=== PATIENT | male | born 1975 | race Caucasian/White ===

== ENCOUNTER 2016-04-25 14:46 | Outpatient (CLI) | payer MEDICAID | END 2016-04-25 14:47 | disposition home or self-care (01) | DX: M54.5 Low back pain (principal); Z98.1 Arthrodesis status ==

== ENCOUNTER 2016-04-29 12:52 | Emergency (ER) | payer MEDICAID ==
--- NOTE | 2016-04-29 13:47 | ED Physician Documentation ---
History of Present Illness - Stated complaint Stated Complaint: CHEST PAIN - Chief complaint Chief Complaint: Cardiac - History obtained from History obtained from: Patient - History of Present Illness Timing: How many weeks ago (3) - Additonal information Additional information: 40 y/o male with a history of IVDA has been using again until about 6 days ago when he went back to see Dr. Alegria and he is back on suboxone. He indicates he feels extreme fatigue and has chest pain similar to what happened when he was in [place]. He has also been admitted here last year for + blood culture. He states that he feels worse today than he did then. He is also complaining of some pain in the right upper quadrant. He feels his liver is hurting. Review of Systems Constitutional: reports: Chills. denies: Fever Eyes: denies: Decreased vision Ears: denies: Ear pain Nose: reports: Congestion Throat: denies: Sore throat Cardiac: reports: Chest pain / pressure. denies: Palpitations Respiratory: denies: Dyspnea, Cough GI: reports: Abdominal Pain, Nausea, Diarrhea. denies: Vomiting, Constipation : denies: Dysuria, Frequency Skin: reports: Lesions. denies: Rash Musculoskeletal: reports: Extremity pain. denies: Neck pain, Back pain Neurologic: denies: Generalized weakness, Focal weakness, Numbness PD PAST MEDICAL HISTORY - Past Medical History Cardiovascular: Hypertension, Other Respiratory: None Neuro: None Endocrine/Autoimmune: None GI: Hepatitis : Kidney stones HEENT: None Psych: Depression, Other Musculoskeletal: Osteoarthritis, Chronic back pain Derm: None Other Past Medical History: Hepatitis B and C - Past Surgical History Past Surgical History: Yes Ortho: Spine surgery - Present Medications Home Medications: Ambulatory Orders Medication Instructions Recorded Confirmed Lisinopril 10 mg ORAL DAILY 10/19/15 04/29/16 Gabapentin [Neurontin] 300 mg PO TID 12/23/15 04/29/16 Levofloxacin [Levaquin] 500 mg PO DAILY #10 tablet 04/29/16 Paroxetine HCl [Paxil] 20 mg PO DAILY 04/29/16 04/29/16 Sulfamethoxazole/Trimethoprim 1 each PO BID #20 tablet 04/29/16 [Sulfamethoxazole-Tmp Ds Tablet] - Allergies Allergies/Adverse Reactions: Allergies Allergy/AdvReac Type Severity Reaction Status Date / Time morphine Allergy Itching Verified 04/29/16 13:01 - Social History Does the pt smoke?: Yes Smoking Status: Current every day smoker Does the pt drink ETOH?: Yes Does the pt have substance abuse?: Yes Substance Use and Type: Heroin - Immunizations Immunizations are current?: Yes - POLST Patient has POLST: No PD ED PE NORMAL - Vitals Vital signs reviewed: Yes (hypertensive) - General General: Alert and oriented X 3, No acute distress, Well developed/nourished - HEENT HEENT: Atraumatic, PERRL, EOMI, Other (mild inflammation to the left TM. ) - Neck Neck: Supple, no meningeal sign, No bony TTP - Cardiac Cardiac: RRR, No murmur - Respiratory Respiratory: No respiratory distress, Clear bilaterally - Abdomen Abdomen: Soft, Other (mild tenderness to palpation to the right upper quadrant without gaurding or rebound tenderness. ) - Back Back: No CVA TTP, No spinal TTP Results - Vitals Vitals: Vital Signs - 24 hr 04/29/16 04/29/16 04/29/16 12:56 14:40 15:33 Temperature 36.7 C Heart Rate 84 81 69 Respiratory 22 18 14 Rate Blood Pressure 149/109 H 150/97 H O2 Saturation 98 97 98 Oxygen O2 Source Room air - EKG (time done) 1307 Rate: Rate (enter#) (78) Rhythm: NSR [place]: Normal Ischemia: Normal ST segments Compare to prior EKG: Unchanged from prior EKG Computer interpretation: Agree with computer - Labs Labs: Laboratory Tests 04/29/16 04/29/16 04/29/16 14:00 14:00 14:00 WBC 5.8 RBC 3.97 L Hgb 12.2 L Hct 36.4 L MCV 91.6 MCH 30.8 MCHC 33.6 RDW 14.7 Plt Count 132 MPV 8.3 Neut # 3.6 Lymph # 1.5 Heard # 0.5 Eos # 0.1 Baso # 0.1 Absolute Nucleated RBC 0.00 Nucleated RBCs 0.1 ESR Sodium 138 Potassium 3.6 Chloride 103 Carbon Dioxide 29 Anion Gap 6.0 BUN 16 Creatinine 0.7 Estimated GFR (MDRD) 124 Glucose 114 H Calcium 8.7 Total Bilirubin 0.7 AST 197 H ALT 228 H Alkaline Phosphatase 87 Troponin I < 0.04 Total Protein 7.4 Albumin 3.1 L Globulin 4.3 H Albumin/Globulin Ratio 0.7 L Lipase 54 H Ethyl Alcohol < 5.0 Influenza A (Rapid) Influenza B (Rapid) Influenza Types A,B Ag 04/29/16 04/29/16 14:00 14:15 WBC RBC Hgb Hct MCV MCH MCHC RDW Plt Count MPV Neut # Lymph # Heard # Eos # Baso # Absolute Nucleated RBC Nucleated RBCs ESR 21 H Sodium Potassium Chloride Carbon Dioxide Anion Gap BUN Creatinine Estimated GFR (MDRD) Glucose Calcium Total Bilirubin AST ALT Alkaline Phosphatase Troponin I Total Protein Albumin Globulin Albumin/Globulin Ratio Lipase Ethyl Alcohol Influenza A (Rapid) Negative Influenza B (Rapid) Negative Influenza Types A,B Ag - - Rads (name of study) two-view chest Radiology: Prelim report reviewed (Impression: Normal 2 view chest radiography. ), EMP read indepedently, See rad report Echo heart Radiology: Prelim report reviewed (impression: technically excellent study with no findings to suggest valvular vegetation and the study is unchanged from the study done in November of 2015.), See rad report PD MEDICAL DECISION MAKING - ED course Complexity details: reviewed old records, reviewed results, re-evaluated patient , considered differential, d/w patient ED course: 40-year-old male with a history of intravenous drug abuse who has come back to the emergency department here today with the chief complaint of not feeling well. He states he feels run down and out of energy similar to what he has had previously when he was admitted with a positive blood culture. He states that he has had some pain in his chest with this as well. On examination he does have some otitis in the left ear and he does not have symptoms consistent with this, other than the fatigue. Here in the emergency department he is treated with intravenous Rocephin and we will put him back on Levaquin and Bactrim. Departure - Departure Disposition: 01 Home, Self Care Clinical Impression: IVDU (intravenous drug user) Otitis media Qualifiers: Otitis media type: suppurative Laterality: left Chronicity: acute Recurrence: not specified as recurrent Spontaneous tympanic membrane rupture: without spontaneous rupture Qualified Code(s): H66.002 - Acute suppurative otitis media without spontaneous rupture of ear drum, left ear Condition: Stable Instructions: ED Otitis Media Abx Tx Follow-Up: Niraj Guillen MD [Primary Care Provider] - Prescriptions: Levofloxacin [Levaquin] 500 mg PO DAILY #10 tablet Sulfamethoxazole/Trimethoprim [Sulfamethoxazole-Tmp Ds Tablet] 1 each PO BID # 20 tablet Discharge Date/Time: 04/29/16 16:14
[2016-04-29 14:12] LABS: BASOPHILS # (AUTO) 0.1 10^3/uL (0.0-0.1); BASOPHILS % (AUTO) 0.9 %; EOSINOPHILS # (AUTO) 0.1 10^3/uL (0.0-0.7); EOSINOPHILS % (AUTO) 2.2 %; HCT - HEMATOCRIT 36.4 % (42.0-52.0); HGB - HEMOGLOBIN 12.2 g/dL (14.0-18.0); LYMPHOCYTES # (AUTO) 1.5 10^3/uL (1.5-3.5); LYMPHOCYTES % (AUTO) 26.1 %; MEAN CORPUSCULAR HEMOGLOBIN 30.8 pg (27.0-31.0); MEAN CORPUSCULAR HGB CONC 33.6 g/dL (32.0-36.0); MEAN CORPUSCULAR VOLUME 91.6 fL (80.0-94.0); MEAN PLATELET VOLUME 8.3 fL (7.4-11.4); MONOCYTES # (AUTO) 0.5 10^3/uL (0.0-1.0); MONOCYTES % (AUTO) 9.1 %; NEUTROPHILS # (AUTO) 3.6 10^3/uL (1.5-6.6); NEUTROPHILS % (AUTO) 61.7 %; NUCLEATED RED BLOOD CELLS AUTO 0.1 /100WBC; RED BLOOD COUNT 3.97 10^6/uL (4.70-6.10); RED CELL DISTRIBUTION WIDTH 14.7 % (12.0-15.0); UNCORRECTED WHITE BLOOD COUNT 5.8 x10^3/uL; WHITE BLOOD COUNT 5.8 x10^3/uL (4.8-10.8)
[2016-04-29 14:22] LABS: ALBUMIN/GLOBULIN RATIO 0.7 (1.0-2.2); BILIRUBIN,TOTAL 0.7 mg/dL (0.2-1.0); BUN - BLOOD UREA NITROGEN 16 mg/dL (6-20); CALCIUM 8.7 mg/dL (8.5-10.3); CARBON DIOXIDE - CO2 29 mmol/L (21-32); CHLORIDE 103 mmol/L (101-111); CREATININE 0.7 mg/dL (0.6-1.2); GFR - MDRD 124 (>89); GLUCOSE 114 mg/dL (70-100); LIPASE 54 U/L (22-51); POTASSIUM 3.6 mmol/L (3.5-5.0); SODIUM 138 mmol/L (135-145); TOTAL PROTEIN 7.4 g/dL (6.7-8.2)
--- NOTE | 2016-04-29 14:26 | XRAY Preliminary Report ---
Exam: XR Chest 2 View PA/LAT IMPRESSION: Normal 2-view chest radiography. [facility] SITE ID: [id number]
--- NOTE | 2016-04-29 14:29 | XRAY Report ---
EXAM: CHEST RADIOGRAPHY EXAM DATE: 04/29/2016 02:18 PM. CLINICAL HISTORY: Chest pain cough. COMPARISON: 11/15/2015. TECHNIQUE: 2 views. FINDINGS: Lungs/Pleura: Clear. No effusion or pneumothorax. Mediastinum: Heart and mediastinal contours are unremarkable. Upper lobe vessels not distended. Other: None. IMPRESSION: Normal 2-view chest radiography. [facility] Referring Provider Line: [phone] SITE ID: [id number]
[2016-04-29] MEDS ORDERED: cefTRIAXone 1 GM VIAL ONE (15:26)
[2016-04-29] MEDS: cefTRIAXone 1 GM in SODIUM CHLORIDE 0.9% MINIBAG 100 ML IV STA (15:31)
[2016-04-29 15:34] VITALS: BP 150/97
== END 2016-04-29 16:14 | disposition home or self-care (01) ==
LOC: ED 12:52
DX: H66.002 Acute suppurative otitis media without spontaneous rupture of ear drum, left ear (principal); F11.10 Opioid abuse, uncomplicated; I10 Essential (primary) hypertension; M19.90 Unspecified osteoarthritis, unspecified site; Z87.442 Personal history of urinary calculi; Z86.19 Personal history of other infectious and parasitic diseases
CPT/HCPCS: 36415; 71020; 80053; 80320; 83690; 84484; 85025; 85651; 87040; 87275; 87276; 93005; 93010; 93308; 96365; 99284